=== PATIENT | female | born 1980 | race Caucasian/White ===

== ENCOUNTER 2021-06-26 15:34 | Emergency (ER) | payer OTHER ==
[~2021-06-26] VITALS: Ht 165.1 cm; Wt 95.0 kg
[2021-06-26] MEDS ORDERED: VALIUM 5MG T5 MG/TAB PO (16:01)
[2021-06-26 16:10] VITALS: BP 148/64; PULSE 88; TEMP 99.7
[2021-07-26] MEDS ORDERED: LEXAPRO20 MG PO (12:16)
[2021-07-26] MEDS ORDERED: PERCOCET 325 MG1 TA2 PO (12:17)
[2021-07-29] MEDS ORDERED: FLEXERIL 1010 MG/TAB PO (07:54)
== END 2021-06-26 16:12 | disposition home or self-care (01) ==
LOC: COL.ER 15:34
DX: M54.50 Low back pain, unspecified (principal); Z87.39 Personal history of other diseases of the musculoskeletal system and connective tissue

== ENCOUNTER 2021-07-06 19:55 | Emergency (ER) | payer OTHER ==
[~2021-07-06] VITALS: Ht 165.1 cm; Wt 95.5 kg
[~2021-07-06 19:55] MED LIST: VALIUM 5MG T5 MG/TAB PO
[2021-07-06 20:05] VITALS: TEMP 98.7
[2021-07-06 21:45] VITALS: BP 171/98; PULSE 89
[2021-07-26] MEDS ORDERED: LEXAPRO20 MG PO (12:16)
[2021-07-26] MEDS ORDERED: PERCOCET 325 MG1 TA2 PO (12:17)
[2021-07-29] MEDS ORDERED: FLEXERIL 1010 MG/TAB PO (07:54)
== END 2021-07-06 21:45 | disposition home or self-care (01) ==
LOC: COL.ER 19:55
DX: M54.50 Low back pain, unspecified (principal); X50.0XXA Overexertion from strenuous movement or load, initial encounter

== ENCOUNTER → 2021-07-29 | Outpatient (CLI) | payer OTHER ==
[~2021-07-29] VITALS: Ht 165.1 cm; Wt 95.6 kg
[~2021-07-29] MED LIST changes: +FLEXERIL 1010 MG/TAB PO; +LEXAPRO20 MG PO; +PERCOCET 325 MG1 TA2 PO
[2021-07-29 07:55] VITALS: BP 145/89; PULSE 96; TEMP 98.6
[2021-07-29 09:00] VITALS: BP 128/74; PULSE 95
[2021-07-29 09:15] VITALS: BP 128/86; PULSE 97
[2021-07-29 09:30] VITALS: BP 148/88; PULSE 94
== END ==
LOC: COL.RAD 07:30
DX: M51.26 Other intervertebral disc displacement, lumbar region (principal)
CPT/HCPCS: J2250; J2704; J3010; J7120

== ENCOUNTER → 2021-10-18 | Outpatient (CLI) | payer OTHER ==
[2004-09-04 07:30] VITALS: TEMP 98
== END ==
LOC: MHCPAIN 10:25
DX: M47.896 Other spondylosis, lumbar region (principal); M54.17 Radiculopathy, lumbosacral region; G89.29 Other chronic pain
CPT/HCPCS: G0463